=== PATIENT | female | born 1975 | race Caucasian/White ===

== ENCOUNTER → 2024-01-03 08:36 | Outpatient (CLI) | payer OTHER, MEDICARE, SELFPAY ==
[2024-01-03 10:52] LABS: Alanine Aminotransferase 379 IU/L (<35); Albumin 3.6 g/dL (3.5-5.0); Albumin Globulin Ratio 1.2 (1.0-2.8); Alkaline Phosphatase 167 U/L (38-126); Aspartate Aminotransferase 127 IU/L (14-36); Bilirubin Total 0.6 mg/dL (0.2-1.3); Blood Urea Nitrogen 13 mg/dL (7-17); Carbon Dioxide 32 mmol/L (22-32); Chloride 104 mmol/L (98-107); Estimated Glomerular Filt Rate > 60 mL/min (>60); Globulin 3.1 g/dL (1.7-4.1); Glucose 131 mg/dL (70-100); HEMOLYSIS < 15 (0-50); Potassium 4.7 mmol/L (3.4-5.1); Sodium 138 mmol/L (137-145); Total Protein 6.7 g/dL (6.3-8.2)
== END ==
PROVIDERS: Visit Provider Internal Medicine Hematology & Oncology
DX: C43.21 Malignant melanoma of right ear and external auricular canal (principal)
CPT/HCPCS: 36415; 80053